=== PATIENT | male | born 1950 | race Caucasian/White ===

== ENCOUNTER 2022-02-18 14:34 | Inpatient (IN) | payer MEDICARE, OTHER ==
[~2022-02-18] VITALS: Ht 167.6 cm; Wt 79.4 kg
--- NOTE | 2022-02-18 14:37 | NUR ---
BIB [facility] 58 FROM HOME, C/O HEADACHE AND DIZZINESS AFTER AN ARGUMENT WITH FAMILY. ATTACHED TO MONITOR, BLOOD PRESSURE AND HEART RATE ELEVATED, MD AWARE. PT CHANGED INTO GOWN. STATED HE HAD CHEST TIGHTNESS DURING THE ARGUMENT BUT DENIES ANY PAIN UPON ARRIVAL. AWAITING MD ORDERS.
--- NOTE | 2022-02-18 14:44 | NUR ---
IV ESTABLIHSED R HAND 20G. LABS DRAWN AND COLLECTED AT BEDSIDE
[2022-02-18 15:29] LABS: BASOPHILS % (AUTO) 0.6 % (0.0-2.0); EOSINOPHILS % (AUTO) 2.5 % (0.0-6.0); HEMATOCRIT 40 % (39-51); HEMOGLOBIN 13.3 g/dL (13.5-17.5); LYMPHOCYTES # (AUTO) 1.4 K/uL (0.8-4.8); LYMPHOCYTES % (AUTO) 20.8 % (20.0-44.0); MEAN CORPUSCULAR HGB CONC 34 g/dl (31.0-36.0); MEAN CORPUSCULAR VOLUME 88 fL (80-96); MONOCYTES # (AUTO) 0.6 K/uL (0.1-1.30); MONOCYTES % (AUTO) 9.4 % (2.0-12.0); NEUTROPHILS # (AUTO) 4.4 K/uL (1.8-8.9); NEUTROPHILS % (AUTO) 66.7 % (43.0-81.0); PLATELET COUNT (AUTO) 126 K/uL (150-450); RED BLOOD CELL COUNT(AUTO) 4.54 MIL/uL (4.5-6.0); WHITE BLOOD COUNT (AUTO) 6.6 K/uL (4.3-11.0)
[2022-02-18] MEDS ORDERED: ACETAMINOPHEN 325 MG TABLET PO ONE (15:30)
[2022-02-18 15:36] LABS: CALCIUM, SERUM 8.8 mg/dL (8.5-10.1); CARBON DIOXIDE 29 mmol/L (21-32); CHLORIDE 105 mmol/L (98-107); CREATININE 2.5 mg/dL (0.6-1.3); GLUCOSE 232 mg/dL (74-106); POTASSIUM 3.5 mmol/L (3.5-5.1); SODIUM SERUM 143 mmol/L (136-145); UREA NITROGEN, BLOOD 39 mg/dL (7-18)
[2022-02-18] MEDS ORDERED: ASPIRIN EC 325 MG TABLET.DR PO ONE (16:00)
[2022-02-18] MEDS ORDERED: ASPIRIN 325 MG TABLET ONE (16:03)
[2022-02-18] MEDS ORDERED: HEPARIN INFUSION/D5W 500 ML IV ONE (16:30)
--- NOTE | 2022-02-18 16:36 | NUR ---
COVID TEST COLLECTED AND SENT
--- NOTE | 2022-02-18 16:36 | NUR ---
ADDITIONAL IV ESTABLIHSED L FA 20G.
[2022-02-18] MEDS ORDERED: ENOXAPARIN SODIUM 80 MG/0.8 ML DISP.SYRIN SQ ONE (17:23)
[2022-02-18] MEDS ORDERED: FURO-144 PO (19:05)
[2022-02-18] MEDS ORDERED: IRBE150T28 PO (19:05)
[2022-02-18] MEDS ORDERED: HYDR100T27 PO (19:05)
[2022-02-18] MEDS ORDERED: DOXA4TAB19 PO (19:05)
[2022-02-18] MEDS ORDERED: CLON0.2T PO (19:05)
[2022-02-18] MEDS ORDERED: METO-357 PO (19:05)
[2022-02-18] MEDS ORDERED: ASPI-1420 PO (19:06)
[2022-02-18] MEDS ORDERED: FOLI0.4T6 PO (19:06)
[2022-02-18] MEDS ORDERED: MAGN400T26 PO (19:06)
[2022-02-18] MEDS ORDERED: INSU100V11 SQ (19:06)
[2022-02-18] MEDS ORDERED: INSU100V7 SQ (19:06)
[2022-02-18] MEDS ORDERED: FENO160T PO (19:06)
[2022-02-18] MEDS ORDERED: DULA1.5P SQ (19:06)
[2022-02-18] MEDS ORDERED: COLC0.6T67 PO (19:06)
--- NOTE | 2022-02-18 20:50 | NUR ---
CALLED FOR REPORT. RN WILL CALL BACK
[2022-02-18] MEDS ORDERED: MAG HYDROX/AL HYDROX/SIMETH 30 ML UDC PO PRN (21:00)
[2022-02-18] MEDS ORDERED: ACETAMINOPHEN 325 MG TABLET PO PRN (21:00)
[2022-02-18] MEDS ORDERED: DOCUSATE SODIUM 100 MG CAPSULE PO PRN (21:00)
[2022-02-18] MEDS ORDERED: MORPHINE SULFATE INJ 2 MG/ML DISP.SYRIN IV PRN (21:00)
--- NOTE | 2022-02-18 21:15 | NUR ---
CALLED FOR REPORT. NURSE NOT AVAILBLE FOR REPORT.
--- NOTE | 2022-02-18 21:19 | NUR ---
REPORT GIVEN TO LEANNE
[2022-02-18 21:30] VITALS: BP 168/100
--- NOTE | 2022-02-18 21:45 | NUR ---
PT TRANSPORTED TO ROOM 326-1 ON CARDIAC PER ACLS IN STABLE CONDITION
--- NOTE | 2022-02-18 22:15 | NUR ---
FLAKE MILLER WHEAT AND OATSASSOCIATE DIRECTOR CAREER SERVICES NOTES RECEIVED PATIENT FROM ER VIA GURNEY; AMBULATORY. PATIENT IS AWAKE, ALERT AND ORIENTED X4. ON ROOM AIR; TOLERATING WELL. BREATHING EVEN AND UNLABORED. NO SOB NOTED. NOT IN ANY FORM OF RESPIRATORY DISTRESS. NO C/O OF ANY PAIN OR DISCOMFORT AT THIS TIME. ON TELEMETRY MONITORING WITH CURRENT READING OF SINUS RHYTHM HR-99BPM. WITH IV ACCESS ON RIGHT HAND 20g AND LEFT FOREARM 20g. BOTH ARE PATENT, INTACT AND SALINE LOCKED. SKIN ASSESSMENT DONE; WARM TO TOUCH; INTACT. ALL BELONGINGS CHECKED AND ACCOUNTED FOR. ORIENTED TO STAFF, ROOM AND UNIT. ABLE TO MAKE NEEDS KNOWN. FALL AND SAFETY MEASURES IMPLEMENTED: CALL LIGHT AND TABLE WITHIN REACH, SIDE RAILS UP X2, BED IN LOWEST LOCKED POSITION. WILL CONTINUE PLAN OF CARE
[2022-02-18] MEDS: SIMVASTATIN 20 MG TABLET PO SCH (22:36)
[2022-02-19] VITALS (7 sets, daily range): BP systolic 91–165; BP diastolic 52–100
[2022-02-19] MEDS ORDERED: DEXTROSE 50%-WATER 50 ML DISP.SYRIN IV PRN (00:30)
[2022-02-19] MEDS ORDERED: FUROSEMIDE 20 MG/2 ML VIAL IV SCH (00:30)
[2022-02-19] MEDS: hydrALAZINE HCL IV 20 MG VIAL IV PRN (01:59)
--- NOTE | 2022-02-19 01:59 | NUR ---
RN NOTES BP - 165/103 MM HG; PRN HYDRALAZINE 10 MG GIVEN IV ORDERED. WILL CONTINUE TO MONITOR AND REASSESS PT.
[2022-02-19] MEDS: FUROSEMIDE 40 MG/4 ML VIAL IV SCH ×3 (02:16→16:51)
[2022-02-19] MEDS: BLOOD SUGAR DIAGNOSTIC 1 EACH STRIP IN SCH ×4 (06:07→21:39)
[2022-02-19] MEDS: INSULIN REGULAR, HUMAN 100 UNIT/ML 3 ML VIAL SQ PRN ×4 (06:18→21:35)
[2022-02-19 06:34] LABS: BASOPHILS % (AUTO) 0.7 % (0.0-2.0); EOSINOPHILS % (AUTO) 3.7 % (0.0-6.0); HEMATOCRIT 39 % (39-51); LYMPHOCYTES # (AUTO) 2.1 K/uL (0.8-4.8); LYMPHOCYTES % (AUTO) 32.5 % (20.0-44.0); MEAN CORPUSCULAR HGB CONC 34 g/dl (31.0-36.0); MEAN CORPUSCULAR VOLUME 88 fL (80-96); MONOCYTES # (AUTO) 0.7 K/uL (0.1-1.30); MONOCYTES % (AUTO) 10.6 % (2.0-12.0); NEUTROPHILS # (AUTO) 3.4 K/uL (1.8-8.9); NEUTROPHILS % (AUTO) 52.5 % (43.0-81.0); PLATELET COUNT (AUTO) 132 K/uL (150-450); RED BLOOD CELL COUNT(AUTO) 4.44 MIL/uL (4.5-6.0); WHITE BLOOD COUNT (AUTO) 6.5 K/uL (4.3-11.0)
--- NOTE | 2022-02-19 06:53 | NUR ---
ACID CRANE OPERATOR CLOSING NOTES PATIENT IN BED; AWAKE, A/O X4.STABLE ON ROOM AIR. RESPIRATIONS EVEN AND NONLABORED. NOT IN ANY FORM OF RESPIRATORY DISTRESS. DENIES ANY PAIN OR DISCOMFORT AT THIS TIME. ON TELE MONITORING WITH CURRENT READING OF SR HR - 87 BPM. IV ACCESS ON RIGHT HAND 20g AND LEFT FOREARM 20g; BOTH PATENT, INTACT AND SALINE LOCKED. ALL NEEDS MET. FALL AND SAFETY MEASURES IN PLACE: CALL LIGHT AND TABLE WITHIN REACH, SIDE RAILS UP X2, BED IN LOWEST LOCKED POSITION. ENDORSED TO MORNING SHIFT FOR ABHI.
[2022-02-19 07:08] LABS: ALANINE AMINOTRANSFERASE 30 U/L (12-78); ALBUMIN 3.6 g/dL (3.4-5.0); ALKALINE PHOSPHATASE 58 U/L (46-116); ASPARTATE AMINOTRANSFERASE 22 U/L (15-37); BILIRUBIN,TOTAL 0.4 mg/dL (0.2-1.0); CALCIUM, SERUM 8.6 mg/dL (8.5-10.1); CARBON DIOXIDE 27 mmol/L (21-32); CHLORIDE 104 mmol/L (98-107); CREATININE 2.4 mg/dL (0.6-1.3); GLUCOSE 191 mg/dL (74-106); PHOSPHORUS 3.6 mg/dL (2.5-4.9); POTASSIUM 3.2 mmol/L (3.5-5.1); SODIUM SERUM 141 mmol/L (136-145); TOTAL PROTEIN, SERUM 7.1 g/dL (6.4-8.2); UREA NITROGEN, BLOOD 38 mg/dL (7-18)
[2022-02-19 07:12] LABS: THYROID STIMULATING HORMONE 0.416 uIU/mL (0.358-3.74)
--- NOTE | 2022-02-19 07:40 | NUR ---
SOLUTION DESIGN ENGINEER OPENING NOTE Patient in bed, awake. A/O x 4, able to make needs known. On room air, breathing evenly and unlabored. No SOB or s/s of distress noted. IV access on RAC #20 SL and LFA #20 SL, both intact and patent. On tele monitoring showing SR, Hr on the 80's. Patient denies chest pain at this time. Safety precautions in place: be din low, locked position; siderails up x 2, call light within reach. Will continue to monitor.
[2022-02-19] MEDS: COLCHICINE 0.6 MG TABLET PO SCH (08:35)
[2022-02-19] MEDS: FOLIC ACID 1 MG TABLET PO SCH (08:35)
[2022-02-19] MEDS: ASPIRIN 81 MG TAB.CHEW PO SCH (08:35)
[2022-02-19] MEDS: MAGNESIUM OXIDE 400 MG TABLET PO SCH (08:35)
[2022-02-19] MEDS: DOXAZOSIN MESYLATE (4 MG) 4 MG TABLET PO SCH (08:35)
[2022-02-19] MEDS: ISOSORBIDE DINITRATE (20MG) 20 MG TABLET PO SCH ×2 (08:36→16:45)
[2022-02-19] MEDS: METOPROLOL TARTRATE 50 MG TABLET PO SCH ×2 (08:36→21:25)
[2022-02-19] MEDS: hydrALAZINE HCL 50 MG TABLET PO SCH ×3 (08:36→16:44)
[2022-02-19] MEDS ORDERED: ENOXAPARIN SODIUM 60 MG/0.6 ML DISP.SYRIN SQ SCH (09:00)
[2022-02-19] MEDS ORDERED: LOSARTAN POTASSIUM 50 MG TABLET PO SCH (09:00)
[2022-02-19] MEDS ORDERED: CLONIDINE HCL 0.1 MG TABLET PO SCH (09:00)
[2022-02-19] MEDS ORDERED: METOPROLOL SUCCINATE 50 MG TAB.SR.24H PO SCH (09:00)
[2022-02-19] MEDS ORDERED: hydrALAZINE HCL 50 MG TABLET PO SCH (09:00)
[2022-02-19] MEDS: INSULIN GLARGINE, 100 UNIT/ML CARTRIDGE SQ SCH (09:03)
[2022-02-19] MEDS: INSULIN LISPRO/ASPART 100 UNIT/ML CARTRIDGE SQ SCH ×3 (09:03→17:01)
[2022-02-19] MEDS ORDERED: POTASSIUM CHLORIDE 20 MEQ TAB.PRT.SR PO SCH (10:00)
--- NOTE | 2022-02-19 10:10 | NUR ---
RN NOTE Received call from Jorge from lab, patient's troponin level is [phone]. Dr. Mo and Dr. Montanez notified. No new orders at this time.
--- NOTE | 2022-02-19 11:28 | NUR ---
RN NOTE Pharmacy called and asked to call patient's family to bring Trulicity medication. Spoke to patient's daughter and granddaughter, they will bring medicine.
[2022-02-19] MEDS: FENOFIBRATE NANOCRYS (145 MG) 145 MG TABLET PO SCH (12:22)
--- NOTE | 2022-02-19 13:28 | NUR ---
RN NOTES PT'S DAUGHTER BROUGHT 2 SYRINGES OF TRULICITY MEDICATION TO UNIT FROM HOME.
--- NOTE | 2022-02-19 13:44 | NUR ---
RN NOTE Brought Trulicity 2 syringes to pharmacy. Relayed to Pharmacist that patient takes it every Saturday.
[2022-02-19] MEDS ORDERED: ENOXAPARIN SODIUM 80 MG/0.8 ML DISP.SYRIN SQ SCH (17:00)
--- NOTE | 2022-02-19 17:09 | NUR ---
RN NOTE BP medications scheduled for 1700 held, patient's BP is 91/52, HR 93. Patient denies any dizziness or headache at this time. Dr. Mo made aware.
--- NOTE | 2022-02-19 18:52 | NUR ---
KNIFE FINISHER CLOSING NOTE Patient in bed, resting. A/O x 4, able to make needs known. Stable on room air, breathing evenly and unlabored. No SOB or s/s of distress noted. IV access on RAC #20 SL and LFA #20 SL, both intact and patent. On tele monitoring showing SR, HR on the 90's. Patient denies chest pain or any discomfort at this time. Due meds given. All needs attended to. Safety precautions maintained: bed in low, locked position; siderails up x 2, call light within reach. Will endorse to retail shift leader nurse for ABHI.
--- NOTE | 2022-02-19 19:50 | NUR ---
DIRECTOR EXECUTIVE COMMUNICATIONS OPENING NOTE Patient in bed, awake. A/O x 4, able to make needs known. On room air, breathing evenly and unlabored. No SOB/distress noted. IV access on RAC #20 SL and LFA #20 SL, both intact and patent. On tele monitor 84bpm,no complaine of pain/discomfort at this time.safety measure inplace,call light within reach. Will continue to monitor.
[2022-02-19] MEDS: SIMVASTATIN 20 MG TABLET PO SCH (21:25)
[2022-02-20] VITALS: BP 157/89
[2022-02-20 04:00] VITALS: BP 167/92
--- NOTE | 2022-02-20 06:19 | NUR ---
ARTS AND SCIENCES DEAN CLOSING NOTE; Patient in bed, awake. A/O x 4, able to make needs known. On room air, breathing evenly and unlabored. No SOB/distress noted.due meds giving as order,all needs attended, IV access on RAC #20 SL and LFA #20 SL, both intact and patent. On tele monitor 90bpm,no complaine of pain/discomfort at this time.safety measure inplace,call light within reach. Will endorsed to next sheft.
[2022-02-20] MEDS: INSULIN REGULAR, HUMAN 100 UNIT/ML 3 ML VIAL SQ PRN ×3 (06:45→22:35)
[2022-02-20] MEDS: BLOOD SUGAR DIAGNOSTIC 1 EACH STRIP IN SCH ×4 (06:47→22:36)
[2022-02-20 07:23] LABS: BASOPHILS % (AUTO) 0.5 % (0.0-2.0); EOSINOPHILS % (AUTO) 4.6 % (0.0-6.0); HEMATOCRIT 40 % (39-51); HEMOGLOBIN 13.3 g/dL (13.5-17.5); LYMPHOCYTES # (AUTO) 2.4 K/uL (0.8-4.8); LYMPHOCYTES % (AUTO) 29.9 % (20.0-44.0); MEAN CORPUSCULAR HGB CONC 34 g/dl (31.0-36.0); MEAN CORPUSCULAR VOLUME 87 fL (80-96); MONOCYTES # (AUTO) 0.8 K/uL (0.1-1.30); MONOCYTES % (AUTO) 9.6 % (2.0-12.0); NEUTROPHILS # (AUTO) 4.4 K/uL (1.8-8.9); NEUTROPHILS % (AUTO) 55.4 % (43.0-81.0); PLATELET COUNT (AUTO) 122 K/uL (150-450); RED BLOOD CELL COUNT(AUTO) 4.52 MIL/uL (4.5-6.0)
[2022-02-20 07:51] LABS: ALANINE AMINOTRANSFERASE 28 U/L (12-78); ALBUMIN 3.5 g/dL (3.4-5.0); ALKALINE PHOSPHATASE 48 U/L (46-116); ASPARTATE AMINOTRANSFERASE 23 U/L (15-37); BILIRUBIN,TOTAL 0.4 mg/dL (0.2-1.0); CALCIUM, SERUM 8.7 mg/dL (8.5-10.1); CARBON DIOXIDE 28 mmol/L (21-32); CHLORIDE 104 mmol/L (98-107); CREATININE 2.9 mg/dL (0.6-1.3); GLUCOSE 154 mg/dL (74-106); MAGNESIUM 2.2 mg/dL (1.8-2.4); PHOSPHORUS 4.1 mg/dL (2.5-4.9); POTASSIUM 3.4 mmol/L (3.5-5.1); SODIUM SERUM 141 mmol/L (136-145); UREA NITROGEN, BLOOD 45 mg/dL (7-18)
[2022-02-20 08:00] VITALS: BP 167/101
--- NOTE | 2022-02-20 08:04 | NUR ---
COOPER HELPER OPENING NOTE Patient in bed, awake. A/O x 4, able to make needs known. On room air, breathing evenly and unlabored. No SOB or s/s of distress noted. IV access on RAC #20 SL and LFA #20 SL, both intact and patent. On tele monitoring showing SR, HR 93. Patient denies chest pain at this time. Safety precautions in place: be din low, locked position; siderails up x 2, call light within reach. Will continue to monitor.
--- NOTE | 2022-02-20 08:11 | NUR ---
RN NOTE Received call from Sai from lab, patient's Troponin level is 720. Dr. Mo and Jere Chong, ALEXANDRA notified. No new orders at this time.
[2022-02-20] MEDS: FENOFIBRATE NANOCRYS (145 MG) 145 MG TABLET PO SCH (09:06)
[2022-02-20] MEDS: ISOSORBIDE DINITRATE (20MG) 20 MG TABLET PO SCH ×2 (09:07→18:02)
[2022-02-20] MEDS: DOXAZOSIN MESYLATE (4 MG) 4 MG TABLET PO SCH (09:07)
[2022-02-20] MEDS: MAGNESIUM OXIDE 400 MG TABLET PO SCH (09:07)
[2022-02-20] MEDS: ASPIRIN 81 MG TAB.CHEW PO SCH (09:07)
[2022-02-20] MEDS: FOLIC ACID 1 MG TABLET PO SCH (09:07)
[2022-02-20] MEDS: hydrALAZINE HCL 50 MG TABLET PO SCH ×3 (09:08→18:02)
[2022-02-20] MEDS: METOPROLOL TARTRATE 50 MG TABLET PO SCH ×3 (09:10→18:02)
[2022-02-20] MEDS: ENOXAPARIN SODIUM 30 MG/0.3 ML DISP.SYRIN SQ SCH (09:12)
[2022-02-20] MEDS: INSULIN LISPRO/ASPART 100 UNIT/ML CARTRIDGE SQ SCH ×3 (09:15→18:05)
[2022-02-20] MEDS: INSULIN GLARGINE, 100 UNIT/ML CARTRIDGE SQ SCH (09:17)
[2022-02-20] MEDS: ONDANSETRON HCL/PF 4 MG/2 ML VIAL IVP PRN (11:31)
--- NOTE | 2022-02-20 11:31 | NUR ---
RN NOTE Patient complained of nausea, PRN Zofran given. Will continue to monitor.
[2022-02-20 12:00] VITALS: BP 92/56
[2022-02-20] MEDS ORDERED: POTASSIUM CHLORIDE 20 MEQ TAB.PRT.SR PO ONE (12:00)
[2022-02-20 16:00] VITALS: BP 115/69
--- NOTE | 2022-02-20 19:36 | NUR ---
RESTAURANT COOK OPENING NOTE Patient in bed, awake. A/O x 4, able to make needs known. On room air, breathing evenly and unlabored. No SOB/distress noted. IV access on L wrist 20g sl,patent and intact.On tele monitor 89bpm,no complaine of pain/discomfort at this time.safety measure inplace,call light within reach. Will continue to monitor.
--- NOTE | 2022-02-20 19:48 | NUR ---
TRAINING EXECUTIVE CLOSING NOTE Patient in bed, resting. A/O x 4, able to make needs known. Stable on room air, breathing evenly and unlabored. No SOB or s/s of distress noted. IV access on Left hand #20 SL, intact and patent. All needs attended to. Due meds given. On tele monitoring showing Sinus tachycardia, HR 102. Patient denies chest pain at this time. Safety precautions in place: be din low, locked position; siderails up x 2, call light within reach. Will endorse to gun number nurse for ABHI.
[2022-02-20 20:00] VITALS: BP 116/66
[2022-02-20] MEDS: SIMVASTATIN 20 MG TABLET PO SCH (21:15)
[2022-02-21] VITALS: BP 133/75
[2022-02-21] MEDS: METOPROLOL TARTRATE 50 MG TABLET PO SCH ×4 (00:07→17:26)
[2022-02-21] MEDS: INSULIN REGULAR, HUMAN 100 UNIT/ML 3 ML VIAL SQ PRN ×3 (07:18→17:26)
[2022-02-21] MEDS: BLOOD SUGAR DIAGNOSTIC 1 EACH STRIP IN SCH ×4 (07:19→22:00)
[2022-02-21 07:42] LABS: BASOPHILS % (AUTO) 0.4 % (0.0-2.0); HEMATOCRIT 38 % (39-51); HEMOGLOBIN 12.6 g/dL (13.5-17.5); LYMPHOCYTES # (AUTO) 2.4 K/uL (0.8-4.8); LYMPHOCYTES % (AUTO) 31.2 % (20.0-44.0); MEAN CORPUSCULAR HGB CONC 33 g/dl (31.0-36.0); MEAN CORPUSCULAR VOLUME 88 fL (80-96); MONOCYTES # (AUTO) 0.7 K/uL (0.1-1.30); NEUTROPHILS # (AUTO) 4.1 K/uL (1.8-8.9); NEUTROPHILS % (AUTO) 53.4 % (43.0-81.0); PLATELET COUNT (AUTO) 129 K/uL (150-450); RED BLOOD CELL COUNT(AUTO) 4.33 MIL/uL (4.5-6.0); WHITE BLOOD COUNT (AUTO) 7.8 K/uL (4.3-11.0)
--- NOTE | 2022-02-21 07:43 | NUR ---
BOBBIN STRIPPER CLOSING NOTE; Patient in bed, awake. A/O x 4, able to make needs known. On room air, breathing evenly and unlabored. No SOB/distress noted.due meds giving as order,all needs attended, IV access Left Hand 20g SL intact and patent.no complaine of pain/discomfort at this time.safety measure inplace,call light within reach. Will endorsed to next sheft.
[2022-02-21 08:00] VITALS: BP 160/99
[2022-02-21 08:24] LABS: ALANINE AMINOTRANSFERASE 33 U/L (12-78); ALBUMIN 3.4 g/dL (3.4-5.0); ALKALINE PHOSPHATASE 52 U/L (46-116); ASPARTATE AMINOTRANSFERASE 27 U/L (15-37); BILIRUBIN,TOTAL 0.4 mg/dL (0.2-1.0); CALCIUM, SERUM 8.8 mg/dL (8.5-10.1); CARBON DIOXIDE 26 mmol/L (21-32); CHLORIDE 106 mmol/L (98-107); GLUCOSE 118 mg/dL (74-106); MAGNESIUM 2.4 mg/dL (1.8-2.4); PHOSPHORUS 4.2 mg/dL (2.5-4.9); POTASSIUM 3.8 mmol/L (3.5-5.1); SODIUM SERUM 142 mmol/L (136-145); TOTAL PROTEIN, SERUM 6.8 g/dL (6.4-8.2)
[2022-02-21 08:26] LABS: CHOLESTEROL 216 mg/dL (<200); HDL CHOLESTEROL 29 mg/dL (40-60); LDL 123 mg/dL (0-99); TRIGLYCERIDES 299 mg/dL (30-150)
[2022-02-21 08:39] LABS: UREA NITROGEN, BLOOD 44 mg/dL (7-18)
[2022-02-21] MEDS: INSULIN LISPRO/ASPART 100 UNIT/ML CARTRIDGE SQ SCH ×3 (09:00→17:25)
[2022-02-21] MEDS: INSULIN GLARGINE, 100 UNIT/ML CARTRIDGE SQ SCH (09:00)
[2022-02-21] MEDS: ISOSORBIDE DINITRATE (20MG) 20 MG TABLET PO SCH ×2 (09:29→16:45)
[2022-02-21] MEDS: COLCHICINE 0.6 MG TABLET PO SCH (09:29)
[2022-02-21] MEDS: MAGNESIUM OXIDE 400 MG TABLET PO SCH (09:29)
[2022-02-21] MEDS: FENOFIBRATE NANOCRYS (145 MG) 145 MG TABLET PO SCH (09:30)
[2022-02-21] MEDS: FOLIC ACID 1 MG TABLET PO SCH (09:30)
[2022-02-21] MEDS: DOXAZOSIN MESYLATE (4 MG) 4 MG TABLET PO SCH (09:30)
[2022-02-21] MEDS: hydrALAZINE HCL 50 MG TABLET PO SCH ×3 (09:30→16:45)
[2022-02-21] MEDS: ASPIRIN 81 MG TAB.CHEW PO SCH (09:30)
[2022-02-21] MEDS: ONDANSETRON HCL/PF 4 MG/2 ML VIAL IVP PRN (12:20)
[2022-02-21] MEDS: ENOXAPARIN SODIUM 30 MG/0.3 ML DISP.SYRIN SQ SCH (12:22)
[2022-02-21 16:00] VITALS: BP 110/53
--- NOTE | 2022-02-21 19:24 | NUR ---
YOLK SPRAY DRIER CLOSING NOTE PATIENT A/O X4. AMBULATING AND ABLE TO VERBALIZE NEEDS. NO S/SX OF PAIN OR DISTRESS OBSERVED OR REPORTED. BLOOD SUGAR LEVELS STABLE ON SHIFT. TOLERATED ALL MEDICATIONS AND INSULIN COVERAGE WELL. NO ABNORMAL TELEMETRY READINGS. PATIENT SCHEDULED FOR CTCA PROCEDURE IN ASSISTANT PRODUCTION MANAGER ON 02/22. NPO AFTER MIDNIGHT. IV ACCESS PATENT AND INTACT. SAFETY MEASURES IN PLACE. CALL LIGHT WITHIN REACH. WILL CONTINUE TO MONITOR.
[2022-02-21 20:00] VITALS: BP 137/78
--- NOTE | 2022-02-21 20:19 | NUR ---
PROFESSIONAL ORGANIZER OPENING NOTES: RECEIVED PATIENT SLEEP IN BED COMFORTABLY, BED IN LOW POSITION CALL LIGHTS WITHIN REACH, NO COMPLAIN OF PAIN AND DISCOMFORT AT THIS TIME,ON ROOM AIR SATURATING WELL, PATIENT ON TELE MONITOR- ST 111 NO SYMPTOMS WAS OBSERVED, PATIENT IS A/OX4 AMBULATORY ON NPO POST MN DUE TO SCHEDULE CTCA IN AM, PATIENT KEPT CLEAN AND DRY ALL NEEDS MET WILL CONTINUE TO MONITOR.
[2022-02-21] MEDS: IV NS 0.9% 1,000 ML IV SCH (20:46)
--- NOTE | 2022-02-21 22:00 | NUR ---
RN NOTES: BLOOD SUGAR-156/ NO INSULIN GIVEN PATIENT NPO POST MIDNIGHT,.
[2022-02-21] MEDS: SIMVASTATIN 20 MG TABLET PO SCH (22:35)
[2022-02-22] VITALS (26 sets, daily range): BP systolic 118–194; BP diastolic 67–114
[2022-02-22] MEDS: METOPROLOL TARTRATE 50 MG TABLET PO SCH ×5 (00:03→23:16)
[2022-02-22 06:17] LABS: BASOPHILS % (AUTO) 0.5 % (0.0-2.0); EOSINOPHILS % (AUTO) 6.5 % (0.0-6.0); HEMATOCRIT 35 % (39-51); HEMOGLOBIN 11.6 g/dL (13.5-17.5); LYMPHOCYTES # (AUTO) 1.9 K/uL (0.8-4.8); LYMPHOCYTES % (AUTO) 27.7 % (20.0-44.0); MEAN CORPUSCULAR HGB CONC 33 g/dl (31.0-36.0); MEAN CORPUSCULAR VOLUME 88 fL (80-96); MONOCYTES # (AUTO) 0.7 K/uL (0.1-1.30); MONOCYTES % (AUTO) 10.4 % (2.0-12.0); NEUTROPHILS # (AUTO) 3.8 K/uL (1.8-8.9); NEUTROPHILS % (AUTO) 54.9 % (43.0-81.0); PLATELET COUNT (AUTO) 114 K/uL (150-450); RED BLOOD CELL COUNT(AUTO) 3.95 MIL/uL (4.5-6.0)
[2022-02-22 06:27] LABS: CALCIUM, SERUM 8.6 mg/dL (8.5-10.1); CARBON DIOXIDE 24 mmol/L (21-32); CHLORIDE 106 mmol/L (98-107); CREATININE 2.8 mg/dL (0.6-1.3); GLUCOSE 146 mg/dL (74-106); MAGNESIUM 2.2 mg/dL (1.8-2.4); PHOSPHORUS 4.4 mg/dL (2.5-4.9); SODIUM SERUM 140 mmol/L (136-145); UREA NITROGEN, BLOOD 47 mg/dL (7-18)
[2022-02-22] MEDS: hydrALAZINE HCL IV 20 MG VIAL IV PRN (06:49)
[2022-02-22] MEDS: IV NS 0.9% 1,000 ML IV SCH (07:05)
[2022-02-22] MEDS: BLOOD SUGAR DIAGNOSTIC 1 EACH STRIP IN SCH ×4 (07:30→22:53)
--- NOTE | 2022-02-22 07:35 | NUR ---
SHANK SCOURER OPENING NOTES: RECEIVED PATIENT IN BED AWAKE, AOX4, MAINLY NEPALI SPEAKER BUT FLUENT IN [place]. ON RA NO S/SX OF RESPIRATORY DISTRESS. SATURATING WELL. TELE MONITORING SHOWS SINUS TACHYCARDIA WITH HR OF 111. NO COMPLAINTS OF PAIN NOR DISCOMFORT. PATIENT IS ON NPO SINCE MIDNIGHT, COMPLIANT. IV LINE AT LFA#22 WITH ONGOING NS @ 100 CC/HR INFUSING WELL. PATIENT IS AMBULATORY WITH [facility]. PATIENT IS SCHEDULED TO HAVE A HERB DOCTOR PROCEDURE THIS MORNING. BED IN LOW POSITION CALL LIGHTS WITHIN REACH, TRAY TABLE WITHIN REACH. WILL CONTINUE TO MONITOR.
--- NOTE | 2022-02-22 07:41 | NUR ---
RN NOTES: BLOOD PRESSURE 169/96 HR 86 ROUTINE METOPROLOL 50MG Q6H NOT GIVEN , PATIENT ON NPO INSTEAD GIVE PRN HYDRALAZINE 10MG (1/2ML) IVP FOR BP- 169/96 HR-86
--- NOTE | 2022-02-22 07:44 | NUR ---
RN NOTES: BLOOD SUGAR-126 NO INSULIN GIVEN OUT OF PARAMETER, PATIENT ON NPO PRIOR TO CTCA IN AM
--- NOTE | 2022-02-22 07:56 | NUR ---
PTA CLOSING NOTES: PATIENT SLEEP IN BED COMFORTABLY, AROUSABLE TO VERBAL STIMULI, BED IN LOW POSITION CALL LIGHTS WITHIN REACH, NO COMPLAIN OF PAIN AND DISCOMFORT AT THIS TIME, ON ROOM AIR SATURATING WELL, PATIENT ON NPO FOR CTCA IN AM , WITH IV LINE AT LFA#22 WITH ONGOING [id number] NFUSING WELL, PATIENT KEPT CLEAN AND DRY ALL NEEDS MET ENDORSE TO INCOMING SHIFT.
[2022-02-22] MEDS: ENOXAPARIN SODIUM 30 MG/0.3 ML DISP.SYRIN SQ SCH (08:00)
[2022-02-22] MEDS ORDERED: IV NS 0.9% 1,000 ML ONE (08:18)
[2022-02-22] MEDS ORDERED: SECONDARY IV SET 1 EA INFUS.SET MC ONE (08:18)
[2022-02-22] MEDS ORDERED: NITROGLYCERIN IN 5 % DEXTROSE 250 ML IV ONE (08:19)
[2022-02-22] MEDS ORDERED: IODIXANOL 150 ML IV ONE ×2 (08:19→09:49)
[2022-02-22] MEDS ORDERED: LIDOCAINE 1% INJ 50 ML MDV IJ ONE (08:19)
[2022-02-22] MEDS ORDERED: FENTANYL PF 100MCG/2ML AMPUL ONE (08:42)
[2022-02-22] MEDS ORDERED: MIDAZOLAM HCL 2 MG/2ML VIAL ONE (08:42)
[2022-02-22] MEDS: FOLIC ACID 1 MG TABLET PO SCH (09:00)
[2022-02-22] MEDS: INSULIN LISPRO/ASPART 100 UNIT/ML CARTRIDGE SQ SCH ×3 (09:00→17:09)
[2022-02-22] MEDS: hydrALAZINE HCL 50 MG TABLET PO SCH ×3 (09:00→17:04)
[2022-02-22] MEDS: INSULIN GLARGINE, 100 UNIT/ML CARTRIDGE SQ SCH (09:00)
[2022-02-22] MEDS: DOXAZOSIN MESYLATE (4 MG) 4 MG TABLET PO SCH (09:00)
[2022-02-22] MEDS: ASPIRIN 81 MG TAB.CHEW PO SCH ×2 (09:00→16:03)
[2022-02-22] MEDS: FENOFIBRATE NANOCRYS (145 MG) 145 MG TABLET PO SCH (09:00)
[2022-02-22] MEDS: MAGNESIUM OXIDE 400 MG TABLET PO SCH (09:00)
[2022-02-22] MEDS: ISOSORBIDE DINITRATE (20MG) 20 MG TABLET PO SCH ×2 (09:00→17:10)
[2022-02-22] MEDS ORDERED: hydrALAZINE HCL IV 20 MG VIAL ONE (09:26)
[2022-02-22] MEDS ORDERED: NICARDIPINE HCL 25 MG/10 ML VIAL IV ONE (09:31)
[2022-02-22] MEDS ORDERED: HEPARIN SODIUM, PORCINE 1,000 UNIT/ML VIAL ONE ×2 (09:37→10:23)
[2022-02-22] MEDS ORDERED: HEPARIN SODIUM, PORCINE 5000 UNITS/1 ML VIAL ONE (09:50)
[2022-02-22] MEDS ORDERED: CLOPIDOGREL BISULFATE 300 MG TABLET ONE (10:35)
--- NOTE | 2022-02-22 11:08 | NUR ---
RN NOTES NOTED THAT PATIENT WAS TRANSFERRED TO ICU FROM [facility]. CALLED RN ARTEMIO AND GAVE REPORT/HAND OFF. PATIENT MIGHT STAY THERE FOR MONITORING. TELE BOX BEING RETRIEVED BY MARISSA NICHOLS.
--- NOTE | 2022-02-22 11:30 | NUR ---
RN/ICU PT BROUGHT TO FLOOR WITH NURSE AND STRAP MACHINE OPERATOR AUTOMATIC PERSONNEL. AWAKE AND ALERT TR BAND IN PLACE AND FEMORAL PRESSURE DRESSING, DRESSING CLEAN AND DRY NO BLEEDING NOTED. BLOOD PRESSURE WAS ELEVATED HR STABLE SR ON BEDSIDE MONITOR RESPIRATORS ARE EVEN AND UNLABORED. PT WAS COMPLAINING OF MILD PAIN WILL CONTINUE TO MONITOR. Addendum: 02/22/22 at 1624 by CAROL HOROWITZ RN PT TO BE KEPT FLAT FOR 6 HOURS FROM 11AM
--- NOTE | 2022-02-22 12:00 | NUR ---
PT COMPLAINING OF PAIN 12/24 DOCTOR SHARAN MOONFIED PT GIVEN MORPHINE, O2 THERAPY, ASPIRIN AND NO3
[2022-02-22] MEDS: NITROGLYCERIN 0.4 MG/TAB BOTTLE SL PRN ×4 (12:12→20:23)
[2022-02-22] MEDS: ONDANSETRON HCL/PF 4 MG/2 ML VIAL IVP PRN ×2 (12:22→18:28)
[2022-02-22] MEDS ORDERED: HEPARIN INFUSION/D5W 500 ML IV PRN (13:00)
[2022-02-22] MEDS: IV NS 0.9% 1,000 ML IV PRN ×2 (13:12→23:21)
[2022-02-22] MEDS ORDERED: HEPARIN SODIUM, PORCINE 5000 UNITS/1 ML VIAL IV ONE (13:30)
[2022-02-22] MEDS: INSULIN REGULAR, HUMAN 100 UNIT/ML 3 ML VIAL SQ PRN ×2 (13:55→22:53)
[2022-02-22] MEDS: MORPHINE SULFATE INJ 2 MG/ML DISP.SYRIN IV PRN ×2 (14:01→20:49)
[2022-02-22] MEDS ORDERED: MORPHINE SULFATE INJ 2 MG/ML DISP.SYRIN IV PRN (17:00)
--- NOTE | 2022-02-22 18:54 | NUR ---
PT SR ON BEDSIDE MONITOR, RESPIRATIONS EVEN AND UNLABORED REPORTING PAIN OF 4 BUT DECLINED TO HAVE MORPHINE DUE TO NAUSEA. PTS FEMORAL DRESSING IS SOAKED WITH BLOOD SAND BAG WAS PUT ON TO MAINTAIN PRESSURE W/ PRESSURE DRESSING. RADIAL TR BAND REMOVED AND DRESSED NO OOZING BLOOD DRESSING REMAINED CLEAN AND DRY WITH TEGADERM. PT TO BE TRANSFERRED TO [facility] FOR HIGHER LEVEL OF CARE. BED REMAINS FLAT AND LEG INSTRUCTED TO KEEP IMMOBILE.
[2022-02-22] MEDS ORDERED: PROMETHAZINE HCL 25 MG TABLET PO ONE (21:00)
[2022-02-22] MEDS ORDERED: METOCLOPRAMIDE HCL 10 MG/2 ML VIAL IV PRN (21:00)
--- NOTE | 2022-02-22 21:00 | NUR ---
RN NOTE RECEIVED PT AWAKE, AOX4. FAMILY AT BEDSIDE. COMPLAINED OF CHEST PAIN 5/10. DENIES ANY RADIATING PAIN, PT UNABLE TO DESCRIBE THE PAIN, BUT DENIES ANY SHARP OR PRESSURES LIKE PAIN, STATED "ITS PAIN". NITROGLYCERIN SL GIVEN 3X WITH NO RELIEVE, PT ALSO COMPLAINING OF NAUSEA. EKG DONE, RESULTS, RELAYED TO DR TSANG, PER DR TSANG, GIVE MORPHINE IVP, GIVEN, WAS RELIEVED WITH PAIN. NOTED WITH BLOOD SOAKED DRESSING ON R FEMORAL, DRESSING CHANGED. WILL CONTINUE TO MONITOR. ON HEPARIN DRIP AT 1200U/HR/ AWAITING FOR NEXT PTT RESULTS.
--- NOTE | 2022-02-22 21:50 | NUR ---
RN NOTE RECEIVED CALL FROM LAB, PTT 98.3. HELD HEPARIN DRIP 1 HR PER PROTOCOL.
[2022-02-22] MEDS: SIMVASTATIN 20 MG TABLET PO SCH (22:53)
--- NOTE | 2022-02-22 23:25 | NUR ---
RN NOTE TROPONIN 614. REPORTED TO DR TSANG, NO NEW ORDER MADE. PT DENIES ANY CHEST PAIN AT THIS TIME.
[2022-02-23] VITALS (22 sets, daily range): BP systolic 103–159; BP diastolic 35–99
--- NOTE | 2022-02-23 00:06 | NUR ---
RN NOTE RECEIVED A CALL FROM [facility], STILL NEED FINANCIAL CLEARANCE IN AM.
--- NOTE | 2022-02-23 01:36 | NUR ---
RN NOTE PT SLEEPING, AROUSES EASILY. NOT IN ANY DISTRESS. PT STATED HE FEELS OK. WILL CONTINUE TO MONITOR.
[2022-02-23 04:47] LABS: BASOPHILS % (AUTO) 0.2 % (0.0-2.0); EOSINOPHILS % (AUTO) 2.5 % (0.0-6.0); HEMATOCRIT 32 % (39-51); LYMPHOCYTES # (AUTO) 1.3 K/uL (0.8-4.8); LYMPHOCYTES % (AUTO) 18.5 % (20.0-44.0); MEAN CORPUSCULAR HGB CONC 34 g/dl (31.0-36.0); MEAN CORPUSCULAR VOLUME 89 fL (80-96); MONOCYTES # (AUTO) 0.7 K/uL (0.1-1.30); MONOCYTES % (AUTO) 10.1 % (2.0-12.0); NEUTROPHILS # (AUTO) 4.7 K/uL (1.8-8.9); NEUTROPHILS % (AUTO) 68.7 % (43.0-81.0); PLATELET COUNT (AUTO) 169 K/uL (150-450); RED BLOOD CELL COUNT(AUTO) 3.66 MIL/uL (4.5-6.0); WHITE BLOOD COUNT (AUTO) 6.9 K/uL (4.3-11.0)
[2022-02-23 05:00] LABS: ALANINE AMINOTRANSFERASE 51 U/L (12-78); ALBUMIN 3.1 g/dL (3.4-5.0); ALKALINE PHOSPHATASE 42 U/L (46-116); ASPARTATE AMINOTRANSFERASE 47 U/L (15-37); BILIRUBIN,TOTAL 0.4 mg/dL (0.2-1.0); CALCIUM, SERUM 8.4 mg/dL (8.5-10.1); CARBON DIOXIDE 24 mmol/L (21-32); CHLORIDE 106 mmol/L (98-107); CREATININE 2.4 mg/dL (0.6-1.3); GLUCOSE 154 mg/dL (74-106); MAGNESIUM 2.3 mg/dL (1.8-2.4); PHOSPHORUS 4.8 mg/dL (2.5-4.9); POTASSIUM 4.6 mmol/L (3.5-5.1); SODIUM SERUM 138 mmol/L (136-145); TOTAL PROTEIN, SERUM 6.3 g/dL (6.4-8.2); UREA NITROGEN, BLOOD 36 mg/dL (7-18)
[2022-02-23] MEDS: METOPROLOL TARTRATE 50 MG TABLET PO SCH ×2 (05:30→12:00)
--- NOTE | 2022-02-23 07:36 | NUR ---
RN NOTE PT AWAKE, TOLERATING O2 AT 2L. ABLE TO MAKE NEEDS KNOWN. DENIES ANY SOB, PT JUST COMPLAINED OF 4/10 CHEST PAIN, PT STATED ONLY A LITTLE BIT OF PAIN, NO SIGNS OF DISTRESS, DENIES DIZZINESS OR NAUSEA. CONTINUE ON HEPARIN DRIP AT 1100U/HR. AND NS AT 100ML/HR. BILLIE ML PATENT AND INTACT. DRESSING ON R. FEMORAL, DRY AND INTACT. ENDORSED TO SEEMA ULLOA FOR ABHI.
--- NOTE | 2022-02-23 07:51 | NUR ---
PT RECEIVED AWAKE AND ALERT 4X NO LONGER BLEEDING FROM FEMORAL OR RADIAL ARTERIES. BP IS STABLE AND WNL. IV CATH #20 IN LEFT HAND PATENT AND FLUSHES. PREPING PT FOR TRANSFER TO [facility] FOR FURTHER TREATMENT PER DR TSANG'S ORDERS. USING URINAL AND BED SIDE COMMODE. NAUSEA FROM YESTERDAY HAS RESOLVED AND PAIN IS CONTROLLED. HOB ELEVATED TO 35 DEGREES BED LOCKED
[2022-02-23] MEDS: BLOOD SUGAR DIAGNOSTIC 1 EACH STRIP IN SCH ×2 (08:13→12:00)
[2022-02-23] MEDS: FOLIC ACID 1 MG TABLET PO SCH (08:18)
[2022-02-23] MEDS: FENOFIBRATE NANOCRYS (145 MG) 145 MG TABLET PO SCH (08:18)
[2022-02-23] MEDS: hydrALAZINE HCL 50 MG TABLET PO SCH ×2 (08:18→13:00)
[2022-02-23] MEDS: MAGNESIUM OXIDE 400 MG TABLET PO SCH (08:18)
[2022-02-23] MEDS: ISOSORBIDE DINITRATE (20MG) 20 MG TABLET PO SCH (08:19)
[2022-02-23] MEDS: DOXAZOSIN MESYLATE (4 MG) 4 MG TABLET PO SCH (08:19)
[2022-02-23] MEDS ORDERED: CLOPIDOGREL BISULFATE 75 MG TABLET PO SCH (09:00)
[2022-02-23] MEDS: COLCHICINE 0.6 MG TABLET PO SCH (10:13)
[2022-02-23] MEDS: INSULIN GLARGINE, 100 UNIT/ML CARTRIDGE SQ SCH (10:16)
[2022-02-23] MEDS: INSULIN LISPRO/ASPART 100 UNIT/ML CARTRIDGE SQ SCH ×2 (10:17→13:00)
--- NOTE | 2022-02-23 12:20 | NUR ---
SPOKE WITH ADELA MCKEON, HOSPITALIST. OKAY TO HOLD HEPARIN DRIP UPON TRANSFER. OKAY TO RESTART UPON ARRIVAL TO [facility]. WILL ENDORSE ACCORDINGLY.
--- NOTE | 2022-02-23 12:30 | NUR ---
TRANSPORT ARRIVED TO TAKE PT TO [facility] HEPARIN ON HOLD DURING TRANSFER
[2022-02-24] MEDS ORDERED: TRULICITY 1.5 MG/0.5 ML SQ SCH (09:00)
== END 2022-02-23 14:23 | disposition short-term general hospital (02) | DRG 250 ==
LOC: ER 14:39 → TELE 20:52 → ICU 02-22 10:53
PROVIDERS: ADMIT Registered Nurse; ATTEND Nurse Practitioner Acute Care
PROC: 02703ZZ Dilation of Coronary Artery, One Artery, Percutaneous Approach (ICD-10-PCS; principal; 2022-02-22)
PROC: 4A023N7 Measurement of Cardiac Sampling and Pressure, Left Heart, Percutaneous Approach (ICD-10-PCS; 2022-02-22)
PROC: B211YZZ Fluoroscopy of Multiple Coronary Arteries using Other Contrast (ICD-10-PCS; 2022-02-22)
PROC: B41FYZZ Fluoroscopy of Right Lower Extremity Arteries using Other Contrast (ICD-10-PCS; 2022-02-22)
PROC: 05HB33Z Insertion of Infusion Device into Right Basilic Vein, Percutaneous Approach (ICD-10-PCS; 2022-02-22)
PROC: B34HZZZ Ultrasonography of Right Upper Extremity Arteries (ICD-10-PCS; 2022-02-22)
DX: I21.4 Non-ST elevation (NSTEMI) myocardial infarction (principal); I50.33 Acute on chronic diastolic (congestive) heart failure; N17.0 Acute kidney failure with tubular necrosis; I13.0 Hypertensive heart and chronic kidney disease with heart failure and stage 1 through stage 4 chronic kidney disease, or unspecified chronic kidney disease; I16.0 Hypertensive urgency; Z20.822 Contact with and (suspected) exposure to COVID-19; Z98.61 Coronary angioplasty status; I25.2 Old myocardial infarction; Z79.899 Other long term (current) drug therapy; Z79.4 Long term (current) use of insulin; Z79.82 Long term (current) use of aspirin; E66.9 Obesity, unspecified; Z68.28 Body mass index [BMI] 28.0-28.9, adult; N28.1 Cyst of kidney, acquired; E11.22 Type 2 diabetes mellitus with diabetic chronic kidney disease; N18.9 Chronic kidney disease, unspecified
CPT/HCPCS: 36415; 71045-TC; 80048-TC; 80053-TC; 80061-TC; 82962-TC; 83735-TC; 84100-TC; 84443-TC; 84484-TC; 85025-TC; 85347; 85610-TC; 85730-TC; 87081-TC; 93307-TC; 94799-TC; C1725; C1769; C1887; C1894; C9803; G0378; G0500; J0360; J1644; J1650; J1815; J1940; J2250; J2270; J2405; J3010; J3490; J7030; Q0169; Q9967

== ENCOUNTER 2022-09-21 03:46 | Emergency (ER) | payer MEDICARE, OTHER ==
[~2022-09-21] VITALS: Ht 167.6 cm; Wt 81.6 kg
[~2022-09-21 03:46] MED LIST: ASPI-1420 PO; CLON0.2T PO; COLC0.6T67 PO; DOXA4TAB19 PO; DULA1.5P SQ; FENO160T PO; FOLI0.4T6 PO; FURO-144 PO; HYDR100T27 PO; INSU100V11 SQ; INSU100V7 SQ; IRBE150T28 PO; MAGN400T26 PO; METO-357 PO
[2022-09-21 03:54] VITALS: BP 117/69
--- NOTE | 2022-09-21 04:09 | NUR ---
on bed side for pt's willow
== END 2022-09-21 04:23 | disposition home or self-care (01) ==
LOC: ER 03:57
DX: E11.649 Type 2 diabetes mellitus with hypoglycemia without coma (principal); I10 Essential (primary) hypertension; Z79.899 Other long term (current) drug therapy; Z79.4 Long term (current) use of insulin; Z79.82 Long term (current) use of aspirin
CPT/HCPCS: 82962-TC